=== PATIENT | female | born 1995 | race Caucasian/White ===

== ENCOUNTER 2023-04-10 12:13 | Emergency (ER) | payer OTHER ==
[2023-04-10] MEDS ORDERED: KETOROLAC 30 MG/ML VIAL IM STA (13:38)
[2023-04-10] MEDS ORDERED: ACETAMINOPHEN 325 MG TABLET PO STA (13:38)
--- NOTE | 2023-04-10 13:39 | ED Physician Documentation ---
PD HPI DYSPNEA - Stated complaint Stated Complaint: SOA - Chief complaint Chief Complaint: Resp - Additional information Additional information: 27-year-old female presents to the emergency department for what she describes as shortness of breath. Patient said that she has a history of " lung spasms" in the past has never seen a provider for this or had any formal diagnosis of this but she feels like over the last 4 days it has increased in severity and intensity to the point where she is having a hard time taking a deep breath and it feels like she has to constantly sit straight up and hold her right chest. She is not taking any estrogen or hormonal therapy no recent long traveling, no history of blood clots. Pain is reproducible with palpation to the right chest. 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 : None HEENT: None Psych: None, ADD/ADHD Musculoskeletal: None Derm: None - Past Surgical History Past Surgical History: No - Present Medications Home Medications: Ambulatory Orders Medication Instructions Recorded Confirmed Montelukast [Singulair] 10/26/17 Penicillin V Potassium 10/26/17 Prednisone [Jazlyn] 10/26/17 Dextroamphetamine/Amphetamine 10 mg PO DAILY 10/09/22 10/09/22 [Adderall Xr 10 mg Capsule] Dextroamphetamine/Amphetamine 20 mg PO DAILY 10/09/22 10/09/22 [Adderall Xr 10 mg Capsule] Ketorolac [Toradol] 10 mg PO Q6H PRN #20 tablet 10/09/22 Montelukast [Singulair] 10 mg PO QPM 10/09/22 10/09/22 - Allergies Allergies/Adverse Reactions: Allergies Allergy/AdvReac Type Severity Reaction Status Date / Time No Known Drug Allergies Allergy Verified 04/10/23 12:27 - Social History Does the pt smoke?: No Smoking Status: Never smoker Does the pt drink ETOH?: No Does the pt have substance abuse?: No - Immunizations Immunizations are current?: Yes - POLST Patient has POLST: No PD ED PE NORMAL - Vitals Vital signs reviewed: Yes - General General: Alert and oriented X 3, No acute distress, Well developed/nourished - Neck Neck: No JVD - Cardiac Cardiac: RRR, No murmur, No gallop, No rub, Strong equal pulses - Respiratory Respiratory: No respiratory distress, Clear bilaterally - Abdomen Abdomen: Normal bowel sounds, Non tender - Back Back: No CVA TTP - Derm Derm: Normal color, Warm and dry, No rash - Psych Psych: Normal mood - Free text exam Free text exam: Chest: No rashes or ecchymosis. Tenderness with palpation to right chest wall Results - Vitals Vitals: Vital Signs - 24 hr 04/10/23 04/10/23 12:22 14:34 Temperature 36.8 C Heart Rate 72 66 Respiratory 16 20 Rate Blood Pressure 128/83 H 120/66 O2 Saturation 100 16 L Oxygen O2 Source Room air - Rads (name of study) Chest x-ray Relevant Findings:: Final report received, EMP independent interpretation of test (No pneumothorax, no cardiomegaly, no other abnormalities) PD Medical Decision Making - ED course ED course: 27-year-old female here for what she describes as shortness of breath. I considered pulmonary embolism in this patient. Clinically the pretest probability of pulmonary embolism is less than 15%. I applied to the PERC rules as follows: The patient's age is under 50, heart rate less than 100, oxygen satu ration greater than 94%, the patient does not have a history of DVT or PE. Patient has no recent trauma or surgery. The patient has no hemoptysis. The patient is not on exogenous estrogens. The patient does not have clinical signs suggesting DVT. As such the patient ruled out for pulmonary embolism by PERC criteria. Chest x-ray was complete which did not reveal any pneumothorax or other acute abnormalities no pneumonia. Patient denies any history of asthma or past history of lung issues or diseases.Pain is reproducible with palpation at this time I believe the patient is experiencing costochondritis. Patient was given very strict return precautions was told to follow-up with her primary care provider and was given a shot of Toradol to help with possible muscular skeletal pain. All questions answered at this time safe for discharge no other emergent workup indicated at this time. Departure - Departure Disposition: 01 Home, Self Care Clinical Impression: Rib pain on right side, Costochondritis Instructions: ED Chest Wall Pain Michael Jansen Comments: We have completed an x-ray of your lungs and did not see any acute abnormalities or findings. As we discussed I would strongly encourage you to follow-up with your primary care provider for further evaluation of the symptoms that you are experiencing but here in the emergency department we ruled out emergency at this point in time. Please come back to the emergency department for having any worsening shortness of breath, worsening chest pain, dizziness, or any other concerning symptoms. As we discussed going home I would alternate between Tylenol and ibuprofen to see if this helps with your pain that you are feeling on the right side of your chest and you can use this to present to your primary care provider with what has helped or not helped. Forms: PCP List Discharge Date/Time: 04/10/23 14:35
--- NOTE | 2023-04-10 14:01 | XRAY Report ---
PROCEDURE: Ribs w/PA Chest 3+V RT INDICATIONS: pain TECHNIQUE: 2 views of the ribs were acquired, along with a single view chest. COMPARISON: None. FINDINGS: Surgical changes and devices: None. Bones and chest wall: No fractures or dislocations. No suspicious bony lesions. Overlying soft tis sues appear unremarkable. Lungs and pleura: No pleural effusions or pneumothorax. Lungs appear clear. Mediastinum: Mediastinal contours appear normal. Heart size is normal. IMPRESSION: No displaced rib fracture or pneumothorax. Reviewed by: Pato Asher MD on 04/10/2023 1:59 PM [facility] Approved by: Pato Asher MD on 04/10/2023 1:59 PM [facility] Station ID: [id number]
[2023-04-10 14:41] VITALS: BP 120/66; O2SAT 16
== END 2023-04-10 14:35 | disposition home or self-care (01) ==
LOC: ED 12:13
DX: M94.0 Chondrocostal junction syndrome [Tietze] (principal)
CPT/HCPCS: 71101; 96372; 99283; 99284; A9270